=== PATIENT | female | born 1990 | race Caucasian/White ===

== ENCOUNTER 2019-10-18 09:58 | Emergency (ER) | payer OTHER, SELFPAY ==
--- NOTE | 2019-10-18 10:07 | DI.US.S_ITS ---
PROCEDURE: US OB <= 14 WEEKS FETUS INDICATIONS: 12 WEEK WITH VAGINAL BLEEDING.RECENT CERVICAL BIOP OUTSIDE/PRIOR DATING DATA: Last menstrual period (LMP): Unknown. LMP-based estimated date of delivery (ADAM): 05/03/20. First dating scan (date and location): 10/18/19. Estimated date of delivery (ADAM) from first dating scan: 04/29/20. TECHNIQUE: Real-time scanning was performed of the fetus and maternal pelvic organs, with image documentation. COMPARISON: None. FINDINGS: Embryo: A single live intrauterine is identified with heart motion detected at 162 beats per minute. A developing embryo is well visualized with a crown-rump length of 5.8 cm, which correlates with an estimated gestational age of 12 weeks 2 days. (Please note that the BPD and HC measurements were also obtained, which are not felt to be accurate at this age and is subsequently were not included in the dating calculations for this study.) No anatomic abnormalities are evident. There is a small subchorionic hemorrhage identified along the lower aspect of the gestational sac just below the level of the placenta close to the cervical os that measures 1.8 x 0.8 x 1.7 cm. Other: Ovaries were not definitely seen. No adnexal abnormalities are appreciated.. Limited images through the kidneys demonstrate no hydronephrosis. IMPRESSION: 1. Single live intrauterine at 12 weeks 2 days (sonographic ADAM 04/29/20) is concordant with the dates based on the patient's LMP. 2. Small subchorionic hemorrhage is positioned near the endocervical os. No previa is appreciated. Followup imaging in 1 to 2 weeks may be helpful to reevaluate this. Dictated by: Vikram Hogan M.D. on 10/18/2019 at 10:49 Approved by: Vikram Hogan M.D. on 10/18/2019 at 10:53
[2019-10-18 10:10] VITALS: BP 140/93; PULSE 100; RESP 13; TEMP 36.9; O2SAT 99
[2019-10-18 10:27] LABS: Add Manual Diff / Slide Review NO; Basophils Absolute Auto 0 /uL (0-100); Basophils Percent Auto 0.5 % (0-2); Eosinophils Absolute Auto 100 /uL (0-450); Eosinophils Percent Auto 1.3 % (2-4); Hematocrit 36.8 % (36-46); Hemoglobin 12.6 g/dL (12.0-16.0); Lymphocytes Absolute Auto 2100 /uL (1100-4500); Lymphocytes Percent Auto 24.8 % (25-40); Mean Corpuscular HGB Conc 34.2 % (30-36); Mean Corpuscular Hemoglobin 29.6 PG (26-34); Mean Corpuscular Volume 86.7 fL (80-100); Monocytes Absolute Auto 500 /uL (0-900); Monocytes Percent Auto 5.6 % (3-14); Neutrophils Absolute Auto 5700 /uL (1500-7000); Neutrophils Percent Auto 67.8 % (50-75); Platelet Count 168 X10^3/uL (150-400); Red Blood Cell Count 4.25 X10^6/uL (4.0-5.2); Red Cell Distribution Width 13.4 % (11.6-14.8); White Blood Cell Count 8.5 X10^3/uL (4.5-11.0)
[2019-10-18 10:37] LABS: Alanine Aminotransferase 13 IU/L (<35); Albumin 4.2 g/dL (3.5-5.0); Albumin Globulin Ratio 1.2 (1.0-2.8); Alkaline Phosphatase 58 U/L (38-126); Aspartate Aminotransferase 30 IU/L (14-36); BUN Creatinine Ratio 18.3 (6-22); Bilirubin Total 0.3 mg/dL (0.2-1.3); Blood Urea Nitrogen 11 mg/dL (7-17); Calcium 9.1 mg/dL (8.4-10.2); Carbon Dioxide 19 mmol/L (22-32); Chloride 107 mmol/L (98-107); Estimated Glomerular Filt Rate > 60.0 mL/min (>60); Globulin 3.4 g/dL (1.7-4.1); Glucose 86 mg/dL (70-100); HEMOLYSIS < 15 (0-50); Potassium 3.6 mmol/L (3.4-5.1); Sodium 138 mmol/L (137-145); Total Protein 7.6 g/dL (6.3-8.2)
--- NOTE | 2019-10-18 11:14 | ED.PREGNANCY ---
HPI - General Chief complaint: Vaginal Bleeding Stated complaint: 12 weeks preg and having vaginal bleeding Time Seen by Provider: 10/18/19 11:14 Source: patient Mode of arrival: Ambulatory Limitations: no limitations History of Present Illness HPI Narrative: 29-year-old female comes to the emergency department with complaint of vaginal bleeding. Patient states she is 12 weeks . She has been following with OBGYN. She had an ultrasound about 9 weeks. Patient had a Pap which was abnormal and they want to get a cervical biopsy which she had done on Sunday, 4 days ago. She had some mild spotting on Sunday and no more until today. Today she has had a little bit of pinkish reddish blood on her underwear and then noted some small clots. Patient denies any abdominal pain or cramping. She has had 4 total pregnancies with the 3 prior ending in miscarriage. Patient denies any fevers, no chest pain or shortness of breath other than when she exerts herself. No nausea or vomiting currently. No issues with bowel movements or urination. No dysuria urgency or frequency. Review of Systems Review of Systems ROS Unobtainable: All systems reviewed & are unremarkable except as noted in HPI and below PMFSH - Past Medical History Medical history: Reports no medical history Exam Narrative Exam Narrative: GENERAL: Alert and oriented x three, well-nourished female in mild distress. HEENT: Head normocephalic, atraumatic, EOMI, pupils reactive, face symmetric, moist mucous membranes NECK: Supple, full range of motion CARDIOVASCULAR: Regular rate and rhythm without murmurs, rubs or gallops. RESPIRATORY: Breath sounds equal bilaterally, no wheezes rales or rhonchi. ABDOMEN: Soft, nontender. Normoactive bowel sounds all 4 quadrants. No guarding or rebound, rigidity, no mass : No CVA tenderness EXTREMITIES: Normal range of motion, no clubbing or edema. Neurovascularly intact NEUROLOGICAL: Cranial nerves II through XII grossly intact. Moving all extremities SKIN: Warm, dry, no petechiae, no rashes or lesions. Initial Vital Signs Initial Vital Signs: Vital Signs Temperature 98.5 F 10/18/19 10:10 Pulse Rate 100 H 10/18/19 10:10 Respiratory Rate 13 10/18/19 10:10 Blood Pressure 140/93 H 10/18/19 10:10 Pulse Oximetry 99 10/18/19 10:10 Course Orders Ordered: ED Orders 10/18/19 10:07 US OB <= 14 weeks fetus Stat 10/18/19 10:17 ABO RH Type Stat Complete Blood Count AUTO DIFF Stat Comprehensive Metabolic Panel Stat HCG Quantitative /Beta subunit Stat 10/18/19 11:45 Urine Culture Stat Urine Microscopic Stat Vital Signs Vital signs: Vital Signs - 8 hr 10/18/19 10:10 10/18/19 11:56 10/18/19 12:45 Temperature 98.5 F 97.2 F L Pulse Rate 100 H 64 Respiratory Rate 13 16 Blood Pressure 140/93 H Blood Pressure [Right Arm] 111/70 Pulse Oximetry 99 100 MDM - OB/Uterine Contractions Lab Data Attestation: I reviewed the patient's lab results. Result diagrams: 10/18/19 10:17 10/18/19 10:17 Labs: Lab Results 10/18/19 10/18/19 10/18/19 Range/Units 10:17 10:17 10:17 WBC 8.5 (4.5-11.0) X10^3/uL RBC 4.25 (4.0-5.2) X10^6/uL Hgb 12.6 (12.0-16.0) g/dL Hct 36.8 (36-46) % MCV 86.7 (80-100) fL MCH 29.6 (26-34) PG MCHC 34.2 (30-36) % RDW 13.4 (11.6-14.8) % Plt Count 168 (150-400) X10^3/uL Neut % (Auto) 67.8 (50-75) % Lymph % (Auto) 24.8 L (25-40) % [place] % (Auto) 5.6 (3-14) % Eos % (Auto) 1.3 L (2-4) % Baso % (Auto) 0.5 (0-2) % Neut # (Auto) 5700 (5257-0431) /uL Lymph # (Auto) 2100 (8914-2810) /uL [place] # (Auto) 500 (0-900) /uL Eos # (Auto) 100 (0-450) /uL Baso # (Auto) 0 (0-100) /uL Sodium 138 (137-145) mmol/L Potassium 3.6 (3.4-5.1) mmol/L Chloride 107 (98-107) mmol/L Carbon Dioxide 19 L (22-32) mmol/L BUN 11 (7-17) mg/dL Creatinine 0.60 (0.52-1.04) mg/dL Estimated GFR > 60.0 (>60) mL/min BUN/Creatinine Ratio 18.3 (6-22) Glucose 86 (70-100) mg/dL Calcium 9.1 (8.4-10.2) mg/dL Total Bilirubin 0.3 (0.2-1.3) mg/dL AST 30 (14-36) IU/L ALT 13 (<35) IU/L Alkaline Phosphatase 58 (38-126) U/L Total Protein 7.6 (6.3-8.2) g/dL Albumin 4.2 (3.5-5.0) g/dL Globulin 3.4 (1.7-4.1) g/dL Albumin/Globulin Ratio 1.2 (1.0-2.8) HCG, Quant 52165 mIU/mL Urine RBC (0-5/HPF) Urine WBC (0-5/HPF) Ur Squamous Epith Cells (0-5/HPF) Urine Bacteria (None) Ur Culture Indicated? Blood Type A Positive 10/18/19 Range/Units 11:45 WBC (4.5-11.0) X10^3/uL RBC (4.0-5.2) X10^6/uL Hgb (12.0-16.0) g/dL Hct (36-46) % MCV (80-100) fL MCH (26-34) PG MCHC (30-36) % RDW (11.6-14.8) % Plt Count (150-400) X10^3/uL Neut % (Auto) (50-75) % Lymph % (Auto) (25-40) % [place] % (Auto) (3-14) % Eos % (Auto) (2-4) % Baso % (Auto) (0-2) % Neut # (Auto) (9709-0552) /uL Lymph # (Auto) (7126-9819) /uL [place] # (Auto) (0-900) /uL Eos # (Auto) (0-450) /uL Baso # (Auto) (0-100) /uL Sodium (137-145) mmol/L Potassium (3.4-5.1) mmol/L Chloride (98-107) mmol/L Carbon Dioxide (22-32) mmol/L BUN (7-17) mg/dL Creatinine (0.52-1.04) mg/dL Estimated GFR (>60) mL/min BUN/Creatinine Ratio (6-22) Glucose (70-100) mg/dL Calcium (8.4-10.2) mg/dL Total Bilirubin (0.2-1.3) mg/dL AST (14-36) IU/L ALT (<35) IU/L Alkaline Phosphatase (38-126) U/L Total Protein (6.3-8.2) g/dL Albumin (3.5-5.0) g/dL Globulin (1.7-4.1) g/dL Albumin/Globulin Ratio (1.0-2.8) HCG, Quant mIU/mL Urine RBC None seen (0-5/HPF) Urine WBC 5-10/hpf H (0-5/HPF) Ur Squamous Epith Cells 1-5 /hpf (0-5/HPF) Urine Bacteria Occasional (0-1) (None) Ur Culture Indicated? Specimen cultured Blood Type Urine Dip Bedside Urine Glucose Negative Bedside Urine Bilirubin - Negative Bedside Urine Ketone ++ 40 Urine Specific [place] 1.010 Bedside Urine Occult Blood - Negative Bedside Urine pH 6.0 Bedside Urine Protein - Negative Bedside Urine Urobilinogen - Negative Bedside Urine Nitrite - Negative Bedside Urine Leukocytes - Negative Esterase Imaging Data ultrasound: Radiologist's Impression: [place] [address] Ultrasound Report Signed Patient: AburtoImelda MMR#: [id number] : 1990Acct:[id number] Age/Sex: 29 FDate of Service: 10/18/19 Loc: ED Accession Number: [id number] Procedure: US OB <= 14 weeks fetus Ordering Provider: Imelda Barrera D.O. PROCEDURE: US OB <= 14 WEEKS FETUS INDICATIONS: 12 WEEK WITH VAGINAL BLEEDING.RECENT CERVICAL BIOP OUTSIDE/PRIOR DATING DATA: Last menstrual period (LMP): Unknown. LMP-based estimated date of delivery (ADAM): 05/03/20. First dating scan (date and location): 10/18/19. Estimated date of delivery (ADAM) from first dating scan: 04/29/20. TECHNIQUE: Real-time scanning was performed of the fetus and maternal pelvic organs, with image documentation. COMPARISON: None. FINDINGS: Embryo: A single live intrauterine is identified with heart motion detected at 162 beats per minute. A developing embryo is well visualized with a crown-rump length of 5.8 cm, which correlates with an estimated gestational age of 12 weeks 2 days. (Please note that the BPD and HC measurements were also obtained, which are not felt to be accurate at this age and is subsequently were not included in the dating calculations for this study.) No anatomic abnormalities are evident. There is a small subchorionic hemorrhage identified along the lower aspect of the gestational sac just below the level of the placenta close to the cervical os that measures 1.8 x 0.8 x 1.7 cm. Other: Ovaries were not definitely seen. No adnexal abnormalities are appreciated.. Limited images through the kidneys demonstrate no hydronephrosis. IMPRESSION: 1. Single live intrauterine at 12 weeks 2 days (sonographic ADAM 04/29/20) is concordant with the dates based on the patient's LMP. 2. Small subchorionic hemorrhage is positioned near the endocervical os. No previa is appreciated. Followup imaging in 1 to 2 weeks may be helpful to reevaluate this. Dictated by: Vikram Hogan M.D. on 10/18/2019 at 10:49 Approved by: Vikram Hogan M.D. on 10/18/2019 at 10:53 MDM Narrative Medical decision making narrative: Patient is RH positive and does no require rhogam. CBC is normal range, chemistry shows a CO of 19 [place] [address]. Consistent with current dates. US shows a small subchorionic hemorrhage. Repeat imaging is recommended in 1-2 weeks. Plan for watchful waiting. Discussed with patient plan for pelvic rest and short-term follow-up with her care providers. Patient is supposed to follow up with MFM on Sunday at [facility]. Encouraged to go ahead and call them this evening to chat for any other recommendations. Pelvic rest. 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 We discussed return precautions signs symptoms to watch for. Patient feels comfortable with the plan at this time. Discharge Plan Departure Patient Disposition: Home Clinical Impression: Subchorionic hemorrhage Qualifiers: Fetus number: single or unspecified fetus Discharge Date/Time: 10/18/19 12:45 Instructions: DI for Vaginal Bleeding During Activity Restrictions/Additional Instructions: Follow up with your providers this week. Call Sunday morning for an appointment. Your ultrasound a small subchorionic hemorrhage and is recommended they have repeat imaging in the next 1-2 weeks for re-evaluation. I recommend pelvic rest with no lifting, no sexual activity until cleared by your physician. Continue home medication/ vitamins. Return to the ER for fevers, abdominal pain, rapidly increasing bleeding, large clots, lightheadedness or passing out, persistent vomiting, black or bloody stools or other new or concerning symptoms. Referrals: Miscellaneous,Doctor, [Primary Care Provider] - Stand Alone Forms: Work Release Note
[2019-10-18 11:18] LABS: HCG Quantitative /Beta subunit 77414 mIU/mL
[2019-10-18 11:56] VITALS: BP 111/70; PULSE 64; RESP 16; O2SAT 100
[2019-10-18 12:16] LABS: RBC Urine None Seen (0-5/HPF)
[2019-10-18 12:32] LABS: Bacteria Urine Occasional (0-1); Culture Indicated Urine Specimen Cultured; Squamous Epithelial Cell Urine 1-5 /HPF (0-5/HPF); WBC Urine 5-10/HPF (0-5/HPF)
[2019-10-18 12:45] VITALS: TEMP 36.2
== END 2019-10-18 12:45 | disposition home or self-care (01) ==
PROVIDERS: Emergency Provider Emergency Medicine
DX: O41.8X11 Other specified disorders of amniotic fluid and membranes, first trimester, fetus 1 (principal); Z3A.12 12 weeks gestation of pregnancy
CPT/HCPCS: 36415; 76801; 80053; 81003; 81015; 84702; 85025; 86900; 86901; 87086; 99284

== ENCOUNTER → 2022-05-17 09:46 | Outpatient (CLI) | payer OTHER, SELFPAY ==
[2022-05-17 11:09] LABS: HCG Quantitative /Beta subunit 190.4 mIU/mL
== END ==
PROVIDERS: PCP Family Medicine; Referring Provider Obstetrics & Gynecology; Visit Provider Obstetrics & Gynecology
DX: N96 Recurrent pregnancy loss (principal); Z34.91 Encounter for supervision of normal pregnancy, unspecified, first trimester
CPT/HCPCS: 36415; 84144; 84702

== ENCOUNTER → 2022-05-19 10:33 | Outpatient (CLI) | payer OTHER, SELFPAY ==
[2022-05-19 12:46] LABS: HCG Quantitative /Beta subunit 395.3 mIU/mL
== END ==
PROVIDERS: PCP Family Medicine; Referring Provider Obstetrics & Gynecology; Visit Provider Obstetrics & Gynecology
DX: N96 Recurrent pregnancy loss (principal); Z34.91 Encounter for supervision of normal pregnancy, unspecified, first trimester
CPT/HCPCS: 36415; 84702

== ENCOUNTER → 2022-06-20 12:21 | Outpatient (CLI) | payer OTHER, SELFPAY ==
[2022-06-20 12:44] LABS: Add Manual Diff / Slide Review NO; Basophils Absolute Auto 100 /uL (0-100); Basophils Percent Auto 0.6 % (0-2); Eosinophils Absolute Auto 200 /uL (0-450); Eosinophils Percent Auto 2.2 % (2-4); Hemoglobin 12.6 g/dL (12.0-16.0); Lymphocytes Absolute Auto 1700 /uL (1100-4500); Mean Corpuscular HGB Conc 33.2 % (30-36); Mean Corpuscular Hemoglobin 29.2 PG (26-34); Mean Corpuscular Volume 87.9 fL (80-100); Monocytes Absolute Auto 500 /uL (0-900); Monocytes Percent Auto 5.8 % (3-14); Neutrophils Absolute Auto 6800 /uL (1500-7000); Neutrophils Percent Auto 73.4 % (50-75); Platelet Count 207 X10^3/uL (150-400); Red Blood Cell Count 4.32 X10^6/uL (4.0-5.2); Red Cell Distribution Width 13.2 % (11.6-14.8); White Blood Cell Count 9.3 X10^3/uL (4.5-11.0)
[2022-06-20 14:42] LABS: Hepatitis B Surface Antigen NEGATIVE s/c (NEGATIVE); Rubella Antibody IgG 48.9 IU/mL (>15)
[2022-06-20 14:57] LABS: HIV 1 & 2 Ab/Ag 4th Gen Combo NEGATIVE (NEGATIVE); Hep C Virus Ab w/Reflex Quant NEGATIVE s/c (NEGATIVE)
[2022-06-21 08:28] LABS: Varicella IgG Antibody 1553 index (Immune >165)
[2022-06-21 11:49] LABS: RPR Screen Non Reactive (Non Reactive)
== END ==
PROVIDERS: PCP Family Medicine; Referring Provider Obstetrics & Gynecology; Visit Provider Obstetrics & Gynecology
DX: Z34.81 Encounter for supervision of other normal pregnancy, first trimester (principal)
CPT/HCPCS: 36415; 80055; 86787; 86803; 86850; 86900; 86901; 87389

== ENCOUNTER → 2022-06-30 16:28 | Outpatient (CLI) | payer OTHER, SELFPAY | PROVIDERS: PCP Family Medicine; Referring Provider Obstetrics & Gynecology; Visit Provider Obstetrics & Gynecology | DX: Z34.81 Encounter for supervision of other normal pregnancy, first trimester (principal) | CPT/HCPCS: 36415 ==

== ENCOUNTER → 2022-07-19 13:57 | Outpatient (CLI) | payer OTHER, SELFPAY ==
[2022-07-19 19:04] LABS: Appearance Urine UA CLEAR; Bilirubin Urine UA NEGATIVE (NEGATIVE); Color Urine UA YELLOW; Glucose Urine UA NEGATIVE (Negative); Ketones Urine UA NEGATIVE (NEGATIVE); Leukocyte Esterase Urine UA NEGATIVE (NEGATIVE); Nitrite Urine UA NEGATIVE (Negative); Occult Blood Urine UA NEGATIVE (Negative); Protein Urine UA NEGATIVE (Negative); Specific Gravity Urine UA 1.015 (1.000-1.035); Urobilinogen Urine UA 0.2 E.U./dL (0.2)
[2022-07-19 20:30] LABS: Urine N gonorrhoeae NOT DETECTED
[2022-07-19 20:31] LABS: Urine Chlamydia NOT DETECTED
== END ==
PROVIDERS: PCP Family Medicine; Visit Provider Obstetrics & Gynecology
DX: Z34.81 Encounter for supervision of other normal pregnancy, first trimester (principal); Z3A.13 13 weeks gestation of pregnancy
CPT/HCPCS: 81003; 87086; 87491; 87591

== ENCOUNTER → 2022-08-16 15:46 | Outpatient (CLI) | payer OTHER, SELFPAY ==
[2022-08-16 16:16] LABS: Alanine Aminotransferase 16 IU/L (<35); Aspartate Aminotransferase 22 IU/L (14-36); Blood Urea Nitrogen 13 mg/dL (7-17); Estimated Glomerular Filt Rate > 60 mL/min (>60)
[2022-08-19 20:26] LABS: AFP Value 40.5 ng/mL (.); Gest Age on Col Date 17.4 weeks (.); Insulin Dep Diabetes No (.); OSBR Risk 1IN 7366 (.); Results Report (.); Test Results *Screen Negative* (.)
== END ==
PROVIDERS: PCP Family Medicine; Referring Provider Specialist; Visit Provider Specialist
DX: O13.5 Gestational [pregnancy-induced] hypertension without significant proteinuria, complicating the puerperium (principal); Z3A.17 17 weeks gestation of pregnancy
CPT/HCPCS: 36415; 82105; 82565; 84450; 84460; 84520

== ENCOUNTER → 2022-09-04 14:08 | Outpatient (CLI) | payer OTHER, SELFPAY ==
--- NOTE | 2022-09-04 14:10 | DI.US.S_ITS ---
PROCEDURE: US OB >= 14 WEEKS FETUS INDICATIONS: Anatomy scan OUTSIDE/PRIOR DATING DATA: Last menstrual period (LMP): April 16, 2022. LMP-based estimated date of delivery (ADAM): January 21, 2023. First dating scan (date and location): June 20, 2022. Estimated date of delivery (ADAM) from first dating scan: January 23, 2023. The calculations are made using the last menstrual period ADAM of January 21, 2023. TECHNIQUE: Real-time scanning was performed of the fetus, with image documentation and biometric measurements. Endovaginal scanning: Not performed COMPARISON: None. FINDINGS: General: A single living intrauterine gestation is present. Presentation: Transverse with head to maternal left. Placenta: Placental position is anterior , without previa. There is a possible low lying placenta. Amniotic fluid index: 15.9 cm, normal range is 5-24 cm. Single deepest vertical pocket is 4.8 cm. heart rate: 155 beats per minute. Maternal cervical canal: 6.6 cm long. Normal lower limit is 2.5 cm. biometrics: Biparietal diameter: 4.4 cm, 19 weeks and 2 days Head circumference: 16.5 cm, 19 weeks and 2 days Abdominal circumference: 14.2 cm, 19 weeks and 4 days Femur length: 3.1 cm, 19 weeks and 5 days Clinically estimated gestational age: 20 weeks and 1 day Composite gestational age from present scan: 19 weeks and 3 days Estimated weight and percentile: 300 g which correlates with the 18th percentile based off gestational age Anatomic survey: Neuro: Ventricles are non-dilated at less than 10 mm. Cisterna magna is normal at 3-11 mm. Cerebellum is normal in size and morphology. Nuchal skin fold: Normal at less than 6 mm between 14-21 weeks gestational age. Face: Nose and lips, facial profile are normal. Spine: No evidence for spina bifida. Heart: 4-chambered heart is present, with normal ventricular outflow tracts. Diaphragm: Diaphragm is intact. Stomach: Left-sided stomach is present. Kidneys: No hydronephrosis. Normal is less than 5 mm in 2nd trimester, less than 7 mm in 3rd trimester. Cord: 3-vessel cord has orthotopic insertion. Bladder: Normal in size. Extremities: All 4 extremities identified. IMPRESSION: Single living intrauterine gestation with estimated sonographic gestational age of approximately 19 weeks and 3 days versus approximately 20 weeks and 1 day based off last menstrual period. Measurements are concordant. Estimated dated delivery based off last menstrual period is approximately January 21, 2023. Unremarkable second-trimester anatomy screening survey. Possible low lying placenta. Follow-up recommended. We strive to produce accurate, complete, and clear reports of imaging services. To assist us in improving patient care, this report was composed using standard report templates and voice recognition software. Therefore, it may contain abnormal punctuation, insertions and/or omissions. Occasional wrong-word or sound-alike substitutions may occur. Though we review the report and make efforts to correct it, we do recommend that the report be read carefully in proper context to recognize any text inaccuracies. Dictated by: Jimmy Villela M.D. on 09/04/2022 at 17:14 Approved by: Jimmy Villela M.D. on 09/04/2022 at 17:18
== END ==
PROVIDERS: PCP Family Medicine; Referring Provider Obstetrics & Gynecology; Visit Provider Obstetrics & Gynecology
DX: Z34.92 Encounter for supervision of normal pregnancy, unspecified, second trimester (principal); Z3A.20 20 weeks gestation of pregnancy
CPT/HCPCS: 76811

== ENCOUNTER → 2022-10-19 12:35 | Outpatient (CLI) | payer OTHER, SELFPAY ==
[2022-10-19 15:10] LABS: Hematocrit 34.8 % (36-46); Hemoglobin 11.8 g/dL (12.0-16.0)
[2022-10-19 15:21] LABS: GTT (PREG) 1 Hour PP 50gm Dose 84 mg/dL (76-139)
== END ==
PROVIDERS: PCP Family Medicine; Referring Provider Obstetrics & Gynecology; Visit Provider Obstetrics & Gynecology
DX: Z34.82 Encounter for supervision of other normal pregnancy, second trimester (principal); Z3A.26 26 weeks gestation of pregnancy
CPT/HCPCS: 36415; 82950; 85014; 85018

== ENCOUNTER → 2022-11-10 16:22 | Outpatient (CLI) | payer OTHER, SELFPAY ==
[2022-11-10 18:39] LABS: Creatinine Urine Random 117.4 mg/dL
[2022-11-10 19:17] LABS: Protein (Total) Urine Random < 5 mg/dL (0-12); Protein Creatinine Ratio Urine 0.04 GRAM/24H
== END ==
PROVIDERS: PCP Family Medicine; Referring Provider Obstetrics & Gynecology; Visit Provider Obstetrics & Gynecology
DX: O36.5990 Maternal care for other known or suspected poor fetal growth, unspecified trimester, not applicable or unspecified (principal)
CPT/HCPCS: 36415; 82570; 84156; 86644; 86645

== ENCOUNTER 2022-11-27 15:27 | Outpatient (CLI) | payer OTHER, SELFPAY ==
--- NOTE | 2022-11-27 16:07 | P.TNLD_ITS ---
Visit Information Visit Information Date of evaluation: 11/27/22 Primary OB Provider: Vanessa Mancini On-call OB Provider: Ally Mcghee Comments/Additional reasons for admission: 32yo at 32w1d here for NST for SGA. Pt is feeling her baby move regularly. [facility] Medical History (Updated 11/09/22 @ 18:47 by Vanessa Mancini MD) Abnormal Pap smear of cervix (~2019) HPV (human papilloma virus) infection (~2019) Intrauterine growth restriction (IUGR) affecting care of mother induced hypertension, Recurrent loss Surgical History (Updated 06/25/22 @ 19:56 by Vanessa Mancini MD) Anesthesia History of dilatation and curettage (~03/2019) S/P LEEP (~05/2020) [place] teeth extracted Family History (Updated 05/22/22 @ 12:47 by Florence Aiken RN) Father Diabetes mellitus Family/Other Cirrhosis with alcoholism Grandmother End stage liver disease Mother Kidney stones Uterine fibroid Grandmother Kidney stones Social History marital status: number of children: 1 household members: spouse and children lives independently: Yes caregiver/support person: Yes housing: house pets and animals: Yes (1 dog) education level: college (Associate's degree) occupational status: unemployed current occupational exposures/hazards: No lali/protestant: Zoroastrianism special lali needs: No travel history: recent (domestic only) seatbelt use: always water heater temp set < 120 deg: Yes working smoke detector in home: Yes fire extinguisher in home: Yes carbon monox detector in home: Yes firearms in home: Yes firearms unloaded and locked: Yes do you feel safe at home: Yes Smoking Status: Never smoker second hand exposure: No alcohol intake: former (1-2/week when not ) substance use type: does not use during the past year weight has: remained stable well-balanced diet: about half the time daily servings fruits/ve-4 caffeine: Yes (aware of 200mg limit) Type(s) of exercise: walking Evaluation Evaluation Baseline heart rate: 150 Variability: Moderate (11-25) monitor accelerations: Present Monitor Decelerations: Absent Category of Tracing: Reactive Diagnosis, Plan/Disposition Plan/Disposition Plan: 32yo at 32w1d here for NST for SGA. NST reactive. Stable for d/c home. Continue testing and regular u/s with MFM. OB Disposition: home
== END 2022-11-27 16:10 | disposition home or self-care (01) ==
LOC: OB 12-08 09:48
PROVIDERS: PCP Family Medicine; Referring Provider Obstetrics & Gynecology; Visit Provider Obstetrics & Gynecology
DX: O36.5930 Maternal care for other known or suspected poor fetal growth, third trimester, not applicable or unspecified (principal); Z3A.32 32 weeks gestation of pregnancy
CPT/HCPCS: 59025; G0378; G0379

== ENCOUNTER 2022-12-06 15:10 | Outpatient (CLI) | payer OTHER, SELFPAY ==
[2022-12-06 18:10] LABS: Protein (Total) Urine Random < 5 mg/dL (0-12)
--- NOTE | 2022-12-10 23:18 | PM.OBTRLD ---
Visit Information Visit Information Date of evaluation: 12/06/22 Primary OB Provider: Vanessa Mancini On-call OB Provider: Vanessa Mancini Reason for Evaluation: Yes non-stress test non-stress test reason: other (FGR) [facility] Medical History (Updated 12/07/22 @ 15:37 by Vanessa Mancini MD) Abnormal Pap smear of cervix (~2019) HPV (human papilloma virus) infection (~2019) Intrauterine growth restriction (IUGR) affecting care of mother induced hypertension, Recurrent loss Surgical History (Updated 06/25/22 @ 19:56 by Vanessa Mancini MD) Anesthesia History of dilatation and curettage (~03/2019) S/P LEEP (~05/2020) [place] teeth extracted Family History (Updated 05/22/22 @ 12:47 by Florence Aiken RN) Father Diabetes mellitus Family/Other Cirrhosis with alcoholism Grandmother End stage liver disease Mother Kidney stones Uterine fibroid Grandmother Kidney stones Social History marital status: number of children: 1 household members: spouse and children lives independently: Yes caregiver/support person: Yes housing: house pets and animals: Yes (1 dog) education level: college (Associate's degree) occupational status: unemployed current occupational exposures/hazards: No lali/voodoo: Roman Catholic special lali needs: No travel history: recent (domestic only) seatbelt use: always water heater temp set < 120 deg: Yes working smoke detector in home: Yes fire extinguisher in home: Yes carbon monox detector in home: Yes firearms in home: Yes firearms unloaded and locked: Yes do you feel safe at home: Yes Smoking Status: Never smoker second hand exposure: No alcohol intake: former (1-2/week when not ) substance use type: does not use during the past year weight has: remained stable well-balanced diet: about half the time daily servings fruits/ve-4 caffeine: Yes (aware of 200mg limit) Type(s) of exercise: walking Evaluation Evaluation Baseline heart rate: 140 Variability: Moderate (11-25) monitor accelerations: Present Monitor Decelerations: Absent Category of Tracing: Reactive Diagnosis, Plan/Disposition Plan/Disposition Plan: Reactive NST Discussed [facility]'s F/U 4 days for a repeat NST OB Disposition: home
== END 2022-12-06 15:50 | disposition home or self-care (01) ==
LOC: LABOR 15:14 → OB 12-08 16:14
PROVIDERS: PCP Family Medicine; Referring Provider Obstetrics & Gynecology; Visit Provider Obstetrics & Gynecology
DX: O36.5930 Maternal care for other known or suspected poor fetal growth, third trimester, not applicable or unspecified (principal); Z3A.33 33 weeks gestation of pregnancy
CPT/HCPCS: 59025; 84156; G0378; G0379

== ENCOUNTER 2022-12-09 14:14 | Outpatient (CLI) | payer OTHER, SELFPAY | END 2022-12-09 14:50 | disposition home or self-care (01) | LOC: OB 12-14 14:53 | PROVIDERS: PCP Family Medicine; Referring Provider Obstetrics & Gynecology; Visit Provider Obstetrics & Gynecology | DX: O36.5930 Maternal care for other known or suspected poor fetal growth, third trimester, not applicable or unspecified (principal); Z3A.33 33 weeks gestation of pregnancy | CPT/HCPCS: 59025; G0378; G0379 ==

== ENCOUNTER 2022-12-14 14:33 | Outpatient (CLI) | payer OTHER, SELFPAY | END 2022-12-14 15:27 | disposition home or self-care (01) | LOC: LABOR 14:57 → OB 12-21 09:01 | PROVIDERS: PCP Family Medicine; Referring Provider Obstetrics & Gynecology; Visit Provider Obstetrics & Gynecology | DX: O36.5930 Maternal care for other known or suspected poor fetal growth, third trimester, not applicable or unspecified (principal); Z3A.34 34 weeks gestation of pregnancy | CPT/HCPCS: 59025; G0378; G0379 ==

== ENCOUNTER 2022-12-17 09:16 | Outpatient (CLI) | payer OTHER, SELFPAY ==
--- NOTE | 2022-12-17 11:56 | P.TNLD_ITS ---
Visit Information Visit Information Date of evaluation: 12/17/22 Primary OB Provider: Vanessa Mancini On-call OB Provider: Courtney Rivera Reason for Evaluation: Yes non-stress test non-stress test reason: other (IUGR) Vital Signs Vital Signs: BP 123/74, P 91, T 36 [facility] Medical History (Updated 12/17/22 @ 12:02 by Courtney Rivera MD) Abnormal Pap smear of cervix (~2019) HPV (human papilloma virus) infection (~2019) Intrauterine growth restriction (IUGR) affecting care of mother induced hypertension, Recurrent loss Surgical History (Updated 06/25/22 @ 19:56 by Vanessa Mancini MD) Anesthesia History of dilatation and curettage (~03/2019) S/P LEEP (~05/2020) [place] teeth extracted Family History (Updated 05/22/22 @ 12:47 by Florence Aiken RN) Father Diabetes mellitus Family/Other Cirrhosis with alcoholism Grandmother End stage liver disease Mother Kidney stones Uterine fibroid Grandmother Kidney stones Social History marital status: number of children: 1 household members: spouse and children lives independently: Yes caregiver/support person: Yes housing: house pets and animals: Yes (1 dog) education level: college (Associate's degree) occupational status: unemployed current occupational exposures/hazards: No lali/taoist: Nondenominational special lali needs: No travel history: recent (domestic only) seatbelt use: always water heater temp set < 120 deg: Yes working smoke detector in home: Yes fire extinguisher in home: Yes carbon monox detector in home: Yes firearms in home: Yes firearms unloaded and locked: Yes do you feel safe at home: Yes Smoking Status: Never smoker second hand exposure: No alcohol intake: former (1-2/week when not ) substance use type: does not use during the past year weight has: remained stable well-balanced diet: about half the time daily servings fruits/ve-4 caffeine: Yes (aware of 200mg limit) Type(s) of exercise: walking Evaluation Evaluation Baseline heart rate: 130 Variability: Moderate (11-25) monitor accelerations: Present Monitor Decelerations: Absent Contraction Frequency (minutes): 0 Category of Tracing: Reactive Status: Category l Diagnosis, Plan/Disposition Final Diagnosis (1) Intrauterine growth restriction (IUGR) affecting care of mother: Status: Acute (2) 34 weeks gestation of : Status: Acute Plan/Disposition Plan: Reactive NST. Continue twice weekly NST and weekly OB visits OB Disposition: home
== END 2022-12-17 10:08 | disposition home or self-care (01) ==
LOC: OB 12-21 08:55
PROVIDERS: PCP Family Medicine; Referring Provider Specialist; Visit Provider Specialist
DX: O36.5930 Maternal care for other known or suspected poor fetal growth, third trimester, not applicable or unspecified (principal); Z3A.34 34 weeks gestation of pregnancy
CPT/HCPCS: 59025; G0378; G0379

== ENCOUNTER 2022-12-20 14:22 | Outpatient (CLI) | payer OTHER, SELFPAY ==
--- NOTE | 2022-12-20 14:49 | P.TNLD_ITS ---
Visit Information Visit Information Date of evaluation: 12/20/22 Primary OB Provider: Vanessa Mancini On-call OB Provider: Courtney Rivera Reason for Evaluation: Yes non-stress test non-stress test reason: other (IUGR) Vital Signs Vital Signs: Blood pressure 127/76, pulse of 88, temperature 36.3? FORMERLY [facility], [facility] Medical History (Updated 12/20/22 @ 14:50 by Courtney Rivera MD) Abnormal Pap smear of cervix (~2019) HPV (human papilloma virus) infection (~2019) Intrauterine growth restriction (IUGR) affecting care of mother induced hypertension, Recurrent loss Surgical History (Updated 06/25/22 @ 19:56 by Vanessa Mancini MD) Anesthesia History of dilatation and curettage (~03/2019) S/P LEEP (~05/2020) [place] teeth extracted Family History (Updated 05/22/22 @ 12:47 by Florence Aiken RN) Father Diabetes mellitus Family/Other Cirrhosis with alcoholism Grandmother End stage liver disease Mother Kidney stones Uterine fibroid Grandmother Kidney stones Social History marital status: number of children: 1 household members: spouse and children lives independently: Yes caregiver/support person: Yes housing: house pets and animals: Yes (1 dog) education level: college (Associate's degree) occupational status: unemployed current occupational exposures/hazards: No lali/uatsdin: Restoration special lali needs: No travel history: recent (domestic only) seatbelt use: always water heater temp set < 120 deg: Yes working smoke detector in home: Yes fire extinguisher in home: Yes carbon monox detector in home: Yes firearms in home: Yes firearms unloaded and locked: Yes do you feel safe at home: Yes Smoking Status: Never smoker second hand exposure: No alcohol intake: former (1-2/week when not ) substance use type: does not use during the past year weight has: remained stable well-balanced diet: about half the time daily servings fruits/ve-4 caffeine: Yes (aware of 200mg limit) Type(s) of exercise: walking Evaluation Evaluation Baseline heart rate: 130 Variability: Moderate (11-25) monitor accelerations: Present Monitor Decelerations: Absent Contraction Frequency (minutes): 0 Category of Tracing: Reactive Status: Category l Diagnosis, Plan/Disposition Final Diagnosis (1) Intrauterine growth restriction (IUGR) affecting care of mother: Status: Acute (2) 35 weeks gestation of : Status: Acute Plan/Disposition Plan: Reactive nonstress test done for IUGR at 35 weeks. Patient has an appointment in office also later today. Continue twice weekly NSTs and weekly office visits. OB Disposition: home
== END 2022-12-20 14:50 | disposition home or self-care (01) ==
LOC: LABOR 14:29 → OB 01-12 09:00
PROVIDERS: PCP Family Medicine; Referring Provider Obstetrics & Gynecology; Visit Provider Obstetrics & Gynecology
DX: O36.5930 Maternal care for other known or suspected poor fetal growth, third trimester, not applicable or unspecified (principal); Z3A.35 35 weeks gestation of pregnancy
CPT/HCPCS: 59025; G0378; G0379

== ENCOUNTER 2022-12-24 09:18 | Outpatient (CLI) | payer OTHER, SELFPAY ==
--- NOTE | 2022-12-24 11:02 | PM.OBTRLD ---
Visit Information Visit Information Date of evaluation: 12/24/22 Primary OB Provider: Vanessa Mancini On-call OB Provider: Courtney Rivera Reason for Evaluation: Yes non-stress test non-stress test reason: other (IUGR) Vital Signs Vital Signs: Blood pressure 121/72, pulse 95, temperature 96.8? FORMERLY [facility] Medical History (Updated 12/24/22 @ 11:04 by Courtney Rivera MD) Abnormal Pap smear of cervix (~2019) HPV (human papilloma virus) infection (~2019) Intrauterine growth restriction (IUGR) affecting care of mother induced hypertension, Recurrent loss Surgical History (Updated 06/25/22 @ 19:56 by Vanessa Mancini MD) Anesthesia History of dilatation and curettage (~03/2019) S/P LEEP (~05/2020) [place] teeth extracted Family History (Updated 05/22/22 @ 12:47 by Florence Aiken RN) Father Diabetes mellitus Family/Other Cirrhosis with alcoholism Grandmother End stage liver disease Mother Kidney stones Uterine fibroid Grandmother Kidney stones Social History marital status: number of children: 1 household members: spouse and children lives independently: Yes caregiver/support person: Yes housing: house pets and animals: Yes (1 dog) education level: college (Associate's degree) occupational status: unemployed current occupational exposures/hazards: No lali/pentecostal: Adventism special lali needs: No travel history: recent (domestic only) seatbelt use: always water heater temp set < 120 deg: Yes working smoke detector in home: Yes fire extinguisher in home: Yes carbon monox detector in home: Yes firearms in home: Yes firearms unloaded and locked: Yes do you feel safe at home: Yes Smoking Status: Never smoker second hand exposure: No alcohol intake: former (1-2/week when not ) substance use type: does not use during the past year weight has: remained stable well-balanced diet: about half the time daily servings fruits/ve-4 caffeine: Yes (aware of 200mg limit) Type(s) of exercise: walking Evaluation Evaluation Baseline heart rate: 140 Variability: Moderate (11-25) monitor accelerations: Present Monitor Decelerations: Absent Contraction Frequency (minutes): 0 Category of Tracing: Reactive Status: Category l Diagnosis, Plan/Disposition Final Diagnosis (1) 36 weeks gestation of : Status: Acute (2) Intrauterine growth restriction (IUGR) affecting care of mother: Status: Acute Plan/Disposition Plan: Reactive nonstress test. Patient is to continue twice weekly NSTs and weekly OB visits. OB Disposition: home
== END 2022-12-24 09:47 | disposition home or self-care (01) ==
LOC: LABOR 09:27 → OB 01-01 06:30
PROVIDERS: PCP Family Medicine; Referring Provider Specialist; Visit Provider Specialist
DX: O36.5930 Maternal care for other known or suspected poor fetal growth, third trimester, not applicable or unspecified (principal); Z3A.36 36 weeks gestation of pregnancy
CPT/HCPCS: 59025; G0378; G0379

== ENCOUNTER 2022-12-30 09:16 | Outpatient (CLI) | payer OTHER, SELFPAY ==
--- NOTE | 2022-12-30 09:57 | P.TNLD_ITS ---
Visit Information Visit Information Date of evaluation: 12/30/22 Primary OB Provider: Pedro Gallagher On-call OB Provider: Sylvia Alexander Reason for Evaluation: Yes non-stress test Comments/Additional reasons for admission: Imelda is a in her 36th week with history of pre-eclampsia and affected by IUGR. She is here today for NST. Vital Signs Vital Signs: BP 105/61 HR: 82 SpO2: 99% Temp 36.2 C temporal [facility] Medical History (Updated 12/24/22 @ 11:04 by Courtney Rivera MD) Abnormal Pap smear of cervix (~2019) HPV (human papilloma virus) infection (~2019) Intrauterine growth restriction (IUGR) affecting care of mother induced hypertension, Recurrent loss Surgical History Anesthesia History of dilatation and curettage (~03/2019) S/P LEEP (~05/2020) [place] teeth extracted Family History Father Diabetes mellitus Family/Other Cirrhosis with alcoholism Grandmother End stage liver disease Mother Kidney stones Uterine fibroid Grandmother Kidney stones Social History marital status: number of children: 1 household members: spouse and children lives independently: Yes caregiver/support person: Yes housing: house pets and animals: Yes (1 dog) education level: college (Associate's degree) occupational status: unemployed current occupational exposures/hazards: No lali/hinduism: Confucianist special lali needs: No travel history: recent (domestic only) seatbelt use: always water heater temp set < 120 deg: Yes working smoke detector in home: Yes fire extinguisher in home: Yes carbon monox detector in home: Yes firearms in home: Yes firearms unloaded and locked: Yes do you feel safe at home: Yes Smoking Status: Never smoker second hand exposure: No alcohol intake: former (1-2/week when not ) substance use type: does not use during the past year weight has: remained stable well-balanced diet: about half the time daily servings fruits/ve-4 caffeine: Yes (aware of 200mg limit) Type(s) of exercise: walking Review of Systems Review of Systems Narrative: negative Evaluation Evaluation Baseline heart rate: 135 Variability: Moderate (11-25) monitor accelerations: Present Monitor Decelerations: Absent Contraction Frequency (minutes): 0 Category of Tracing: Reactive Diagnosis, Plan/Disposition Final Diagnosis (1) 36 weeks gestation of : Status: Acute (2) History of prior with IUGR : Status: Acute (3) H/O section complicating : Status: Acute (4) High risk in first trimester due to recurrent loss: Status: Acute (5) Encounter for supervision of other normal , first trimester: Status: Acute (6) induced hypertension, : Status: Acute Plan/Disposition Plan: NST today. D/c home.
== END 2022-12-30 10:00 | disposition home or self-care (01) ==
LOC: OB 01-04 15:07
PROVIDERS: PCP Family Medicine; Referring Provider Obstetrics & Gynecology; Visit Provider Obstetrics & Gynecology
DX: O36.5930 Maternal care for other known or suspected poor fetal growth, third trimester, not applicable or unspecified (principal); O34.219 Maternal care for unspecified type scar from previous cesarean delivery; O26.23 Pregnancy care for patient with recurrent pregnancy loss, third trimester; Z3A.36 36 weeks gestation of pregnancy
CPT/HCPCS: 59025; G0378; G0379

== ENCOUNTER 2023-01-02 14:53 | Outpatient (CLI) | payer OTHER, SELFPAY | END 2023-01-02 15:35 | disposition home or self-care (01) | LOC: LABOR 14:59 → OB 01-04 15:04 | PROVIDERS: PCP Family Medicine; Referring Provider Obstetrics & Gynecology; Visit Provider Obstetrics & Gynecology | DX: O36.5930 Maternal care for other known or suspected poor fetal growth, third trimester, not applicable or unspecified (principal); Z3A.37 37 weeks gestation of pregnancy; Z34.83 Encounter for supervision of other normal pregnancy, third trimester | CPT/HCPCS: 59025; 87653; G0378; G0379 ==

== ENCOUNTER → 2023-01-02 16:17 | Outpatient (CLI) | payer OTHER, SELFPAY ==
[2023-01-03 15:05] LABS: Strep Grp B PCR NEG for Grp B Strep
== END ==
PROVIDERS: PCP Family Medicine; Visit Provider Obstetrics & Gynecology
DX: Z34.83 Encounter for supervision of other normal pregnancy, third trimester (principal)
CPT/HCPCS: 87653

== ENCOUNTER 2023-01-06 11:56 | Outpatient (CLI) | payer OTHER, SELFPAY ==
--- NOTE | 2023-01-14 16:55 | P.TNLD_ITS ---
Visit Information Visit Information Date of evaluation: 01/06/23 Primary OB Provider: Vanessa Mancini On-call OB Provider: Vanessa Mancini Reason for Evaluation: Yes non-stress test and Yes other Comments/Additional reasons for admission: growth restriction [facility] Medical History (Updated 01/07/23 @ 21:37 by Vanessa Mancini MD) Abnormal Pap smear of cervix (~2019) HPV (human papilloma virus) infection (~2019) Intrauterine growth restriction (IUGR) affecting care of mother induced hypertension, Recurrent loss Surgical History Anesthesia History of dilatation and curettage (~03/2019) S/P LEEP (~05/2020) [place] teeth extracted Family History Father Diabetes mellitus Family/Other Cirrhosis with alcoholism Grandmother End stage liver disease Mother Kidney stones Uterine fibroid Grandmother Kidney stones Social History marital status: number of children: 1 household members: spouse and children lives independently: Yes caregiver/support person: Yes housing: house pets and animals: Yes (1 dog) education level: college (Associate's degree) occupational status: unemployed current occupational exposures/hazards: No lali/baptist: Hindu special lali needs: No travel history: recent (domestic only) seatbelt use: always water heater temp set < 120 deg: Yes working smoke detector in home: Yes fire extinguisher in home: Yes carbon monox detector in home: Yes firearms in home: Yes firearms unloaded and locked: Yes do you feel safe at home: Yes Smoking Status: Never smoker second hand exposure: No alcohol intake: former (1-2/week when not ) substance use type: does not use during the past year weight has: remained stable well-balanced diet: about half the time daily servings fruits/ve-4 caffeine: Yes (aware of 200mg limit) Type(s) of exercise: walking Evaluation Evaluation Baseline heart rate: 135 Variability: Moderate (11-25) monitor accelerations: Present Monitor Decelerations: Absent Category of Tracing: Reactive Diagnosis, Plan/Disposition Plan/Disposition Plan: 37+4 wks gestation FGR Reactive NST OB Disposition: home
== END 2023-01-06 13:03 | disposition home or self-care (01) ==
LOC: OB 01-08 10:39
PROVIDERS: PCP Family Medicine; Referring Provider Obstetrics & Gynecology; Visit Provider Obstetrics & Gynecology
DX: O36.5930 Maternal care for other known or suspected poor fetal growth, third trimester, not applicable or unspecified (principal); Z3A.38 38 weeks gestation of pregnancy
CPT/HCPCS: 59025; G0378; G0379

== ENCOUNTER 2023-01-09 12:06 | Outpatient (CLI) | payer OTHER, SELFPAY | END 2023-01-09 12:50 | disposition home or self-care (01) | LOC: LABOR 12:47 → OB 01-15 06:56 | PROVIDERS: PCP Family Medicine; Referring Provider Obstetrics & Gynecology; Visit Provider Obstetrics & Gynecology | DX: O36.5930 Maternal care for other known or suspected poor fetal growth, third trimester, not applicable or unspecified (principal); Z3A.38 38 weeks gestation of pregnancy | CPT/HCPCS: 59025; G0378; G0379 ==

== ENCOUNTER 2023-01-12 09:57 | Outpatient (CLI) | payer OTHER, SELFPAY | END 2023-01-12 10:58 | disposition home or self-care (01) | LOC: LABOR 10:03 → OB 01-15 06:58 | PROVIDERS: PCP Family Medicine; Referring Provider Obstetrics & Gynecology; Visit Provider Obstetrics & Gynecology | DX: O36.5930 Maternal care for other known or suspected poor fetal growth, third trimester, not applicable or unspecified (principal); Z3A.38 38 weeks gestation of pregnancy | CPT/HCPCS: 59025; G0378; G0379 ==

== ENCOUNTER 2023-01-15 05:41 | Inpatient (IN) | payer OTHER, SELFPAY ==
[2023-01-15 06:19] VITALS: BP 128/83
[2023-01-15 06:49] LABS: Add Manual Diff / Slide Review NO; Basophils Absolute Auto 0 /uL (0-100); Basophils Percent Auto 0.3 % (0-2); Eosinophils Absolute Auto 200 /uL (0-450); Hematocrit 37.2 % (36-46); Hemoglobin 12.6 g/dL (12.0-16.0); Lymphocytes Absolute Auto 2200 /uL (1100-4500); Lymphocytes Percent Auto 20.2 % (25-40); Mean Corpuscular Hemoglobin 30.8 PG (26-34); Mean Corpuscular Volume 90.8 fL (80-100); Monocytes Absolute Auto 800 /uL (0-900); Monocytes Percent Auto 7.1 % (3-14); Neutrophils Absolute Auto 7700 /uL (1500-7000); Neutrophils Percent Auto 70.4 % (50-75); Platelet Count 155 X10^3/uL (150-400); Red Cell Distribution Width 13.8 % (11.6-14.8); White Blood Cell Count 10.9 X10^3/uL (4.5-11.0)
[2023-01-15] MEDS: SCOPOLAMINE 1 PATCH TOP (07:34)
[2023-01-15] MEDS: CITRIC ACID/SODIUM CITRATE 15 ML SOLUTION 30 ML PO (07:34)
--- NOTE | 2023-01-15 07:53 | P.HPOB_ITS ---
OB HPI Date/Time Date of admission: 01/15/23 Date Patient Seen: 01/15/23 Time Patient Seen: 07:53 History of Present Condition Chief complaint: INPT ADAM Calculator Estimated Delivery Date Method Current WG Current Estimate 01/21/23 LMP (Certain) 39w 1d Other Estimates 01/23/23 Ultrasound #1 38w 6d 01/26/23 Ultrasound #2 38w 3d Estimated Gestational Age (weeks): 39+1 : 5 Para: 1 care: good care, initiated at week # (9), number of visits (11) and pounds weight gain (58) Dating criteria OB: LMP confirmed by 1st trimester US Ultrasounds: normal 1st trimester US and abnormal US findings (LLP, FGR) Obstetrical complications: growth restriction Medical complications OB: none Indications Operative indications ( section): previous uterine surgery Preadmission Labs Last OB Lab Results: Blood Type A Positive 01/15/23 06:30 Antibody Screen Negative 01/15/23 06:30 Hematocrit 37.2 % (36-46) 01/15/23 06:30 Hemoglobin 12.6 g/dL (12.0-16.0) 01/15/23 06:30 Hepatitis B Surface Antigen Negative s/c (NEGATIVE) 06/20/22 12 :27 Hepatitis C Antibody Negative s/c (NEGATIVE) 06/20/22 12:27 Rubella Antibody 48.9 IU/mL (>15) 06/20/22 12:27 Varicella-Zoster IgG Antibody 1553 index (Immune >165) 06/20/22 12:27 Glucose 1 Hour 84 mg/dL (76-139) 10/19/22 12:38 Group B Streptococcus (PCR) Neg for grp b strep 01/02/23 16:17 -: Chlamydia screen: negative, Gonorrhea screen: negative and Urine: negative -: PAP smear: Normal Genetic Screens: Cell-free DNA: Normal (normal female) and Alpha-fetoprotein: Normal External Labs -: Urine: negative Prior (ies) Past Pregnancies Del. Date GA/Weeks Labor Lgth Wt Sex Route Outcome Anesthesia Place Delv Breastfeed Preg Comp Name 11/02/18 4 spontaneous 12/04/18 4 spontaneous 03/04/19 12 spontaneous 03/22/20 34 2 lb 13 oz Male live - gage [place], [place] 3 months intrauterine growth restr [place] Delivery Date: 03/04/19 Last Updated by: Florence Aiken RN missed AB, required D&C Delivery Date: 03/22/20 Last Updated by: Florence Aiken RN Emergent C/S for severe IUGR Evaluation Evaluation Baseline heart rate: 135 Variability: Moderate (11-25) monitor accelerations: Present Monitor Decelerations: Absent Category of Tracing: Reactive [facility] Medical History (Updated 01/07/23 @ 21:37 by Vanessa Mancini MD) Abnormal Pap smear of cervix (~2019) HPV (human papilloma virus) infection (~2019) Intrauterine growth restriction (IUGR) affecting care of mother induced hypertension, Recurrent loss Surgical History Anesthesia History of dilatation and curettage (~03/2019) S/P LEEP (~05/2020) [place] teeth extracted Family History Father Diabetes mellitus Family/Other Cirrhosis with alcoholism Grandmother End stage liver disease Mother Kidney stones Uterine fibroid Grandmother Kidney stones Social History marital status: number of children: 1 household members: spouse and children lives independently: Yes caregiver/support person: Yes housing: house pets and animals: Yes (1 dog) education level: college (Associate's degree) occupational status: unemployed current occupational exposures/hazards: No lali/jehovah's witness: Catholic special lali needs: No travel history: recent (domestic only) seatbelt use: always water heater temp set < 120 deg: Yes working smoke detector in home: Yes fire extinguisher in home: Yes carbon monox detector in home: Yes firearms in home: Yes firearms unloaded and locked: Yes do you feel safe at home: Yes Smoking Status: Never smoker second hand exposure: No alcohol intake: former (1-2/week when not ) substance use type: does not use during the past year weight has: remained stable well-balanced diet: about half the time daily servings fruits/ve-4 caffeine: Yes (aware of 200mg limit) Type(s) of exercise: walking Meds Home Medications and Allergies Home Medications Medication Instructions Recorded Confirmed Type prenat.vits,paulina,yro-[id number] 1 tab PO DAILY 05/22/22 01/15/23 History Double Electric Breast Pump #1 ea 01/02/23 01/15/23 Rx Allergies Allergy/AdvReac Type Severity Reaction Status Date / Time No Known Drug Allergies Allergy Verified 01/15/23 06:16 OB Exam Narrative Exam Narrative: HEENT: No thyromegaly, no anterior cervical or supraclavicular lymphadenopathy. Lungs:Clear to auscultation bilaterally, no wheezes. Cardiovascular: Regular rate and rhythm, no murmurs, rubs, or gallops. Abdomen: Well-healed Pfannenstiel scar. No hepatosplenomegaly. No masses palpable. Fundal height: 40 cm Estimated weight: 7 lb Extremities: Trace edema Objective Labs 01/15/23 06:30 Labs: Laboratory Results - last 24 hr 01/15/23 01/15/23 06:30 06:30 WBC 10.9 RBC 4.10 Hgb 12.6 Hct 37.2 MCV 90.8 MCH 30.8 MCHC 34.0 RDW 13.8 Plt Count 155 Neut % (Auto) 70.4 Lymph % (Auto) 20.2 L [facility] % (Auto) 7.1 Eos % (Auto) 2.0 Baso % (Auto) 0.3 Neut # (Auto) 7700 H Lymph # (Auto) 2200 [facility] # (Auto) 800 Eos # (Auto) 200 Baso # (Auto) 0 Blood Type A Positive Antibody Screen Negative Assessment and Plan Assessment and Plan Assessment and Plan narrative: Assessment: 32-year-old 5 para 1 at 39-,1/7 weeks gestation with a previous section Plan: Repeat low-transverse section The risks, benefits, and alternatives to the procedure were explained to the patient. The risks including bleeding, infection, injury to the bowel, bladder, or ureters. She understands these risks and agrees to proceed. A full par Q was held and consent form was signed. Time Spent with Patient Total time spent with greater than 50% in coordination of care (as documented) at patient's floor/unit and/or counseling patient:: less than 15 minutes
--- NOTE | 2023-01-15 07:58 | PM.PREOP ---
Pre-operative Note COVID-19 Criteria for continued procedure: Non-surgical alternatives not available or appropriate per current SOC Interval Note History & Physical reviewed/Exam performed by Physician: Yes Changes to H&P: No H&P completed within 30 days and has changed as indicated here:: 01/15/23
[2023-01-15] MEDS: CEFAZOLIN 2 GM/100 ML PREMIX 100 ML IV (08:10)
[2023-01-15] MEDS: LACTATED RINGERS 1,000 ML 999 ML IV (08:20)
--- NOTE | 2023-01-15 08:24 | SUR.OPER ---
Supine on Padded OR bed, head on pillow, safety belt at thigh, arms secured on padded arm boards at <90 degrees abduction. Bump under right buttock. Legs uncrossed with pillow under knees, gel pad to heels, tape over blanket to lower legs.
--- NOTE | 2023-01-15 08:33 | SUR.OPER ---
Pre-op FHR= 155. Viable baby girl born at 0826. Placenta delivered at 0831. Placenta and cord blood given to OB RNs.
[2023-01-15 09:06] VITALS: BP 128/73; PULSE 98; RESP 18; TEMP 36.3; O2SAT 100
[2023-01-15 09:11] VITALS: BP 124/70; PULSE 98; RESP 16; O2SAT 100
[2023-01-15 09:16] VITALS: BP 119/72; PULSE 98; RESP 16; O2SAT 100
--- NOTE | 2023-01-15 09:35 | PM.OBCS.1 ---
Operative Date/Time/Diagnoses Date of procedure: 01/15/23 Time of procedure: 09:35 Pre-op diagnosis: 39+1 weeks gestation Previous C section Post-op diagnosis: same Procedure & Clinicians Procedure: Repeat low-transverse Same procedure as scheduled: Yes Indications: 39 weeks gestation Previous C section Surgeon: Vanessa Prescott Yes if Unassisted: No Beer Still Runner Compounder: Courtney Rivera Reason for Beer Still Runner Compounder: The assistant professor of english was necessary to retract upon entry into the abdomen and uterus. She assisted with fundal pressure on delivery of the infant. She assisted with closure of the uterus and abdomen with retraction, clipping of suture, and closure of the contralateral fascia. Anesthesia Type: Spinal (With Duramorph) Operative Notes Findings: Live female in the MADDI presentation. Normal uterus, tubes, and ovaries Closure Type: primary Specimen(s): cord blood and placenta Intraoperative meds administered: Duramorph, Ketorolac and Pitocin Applied: Catheter (To continuous drainage) Estimated Blood Loss (mL): 400 Procedure in detail: The patient was taken to the operating room where she was placed in the seated position. Spinal anesthesia with Duramorph was administered. The patient was then placed in the dorsal supine position with a leftward tilt. She was prepped and draped in the usual sterile fashion. A timeout was performed. After spinal analgesia was found to be adequate, a Pfannenstiel skin incision was made through the previous incision and carried through to the underlying layer fascia. The fascia was nicked in the midline, and the incision extended bilaterally with the Del Rosario scissors. The superior aspect of the fascial incision was grasped with a Gibran clamps, elevated, and the underlying rectus muscles dissected off sharply and bluntly. Attention was then turned to the inferior aspect of this incision which in a similar fashion was grasped with a [place] clamps, elevated, and the underlying rectus muscles dissected off sharply and bluntly. The rectus muscles were in the midline. The peritoneum was identified, grasped between 2 hemostats, and entered sharply with the Metzenbaum scissors. This incision was extended superiorly and inferiorly with good visualization of the bladder. The bladder blade was inserted. The vesicouterine peritoneum was identified, grasped with the pickup, and entered sharply with the Metzenbaum scissors. This incision was extended bilaterally, and the bladder flap was created digitally. The bladder blade was reinserted. The lower uterine segment was incised in a transverse fashion with the scalpel. Upon entering the amniotic sac there was moderate amount of light meconium-stained amniotic fluid. The 's head was delivered without difficulty. The nose and mouth were suctioned with bulb suction. The remainder of the body delivered without difficulty. The cord was double clamped and cut after one minute. The infant was handed off to waiting RN and RT. The placenta was delivered by expression. The uterus was cleared of all clots and debris. The uterine incision was repaired with #1 chromic in a running interlocking fashion, and a second layer the same suture was used for an imbricating layer. Hemostasis was achieved. The tubes and ovaries were examined and were found to be normal. The gutters were cleared of all clots and debris. The bladder flap was reapproximated using 2-0 Vicryl in a running fashion. The parietal peritoneum was closed using 2-0 Vicryl in a running fashion. The fascia was reapproximated using 0 Vicryl in a running fashion. The subcutaneous layer was copiously irrigated with warm normal saline. 5 simple interrupted sutures of 3-0 Vicryl were placed to reapproximate the subcutaneous layer. The skin was closed with 4-0 Monocryl in a subcuticular fashion. Steri-Strips were placed. An Aquacel dressing was placed. The uterus was expressed of a small amount of old blood. Sponge, lap, and instrument counts were correct x-2. The patient tolerated the procedure well, and was taken to PACU in stable condition. Complications: none [place] Baby 1: Infant Gender: Female Presentation: vertex Position: Left Occiput Anterior Placental Delivery Description: Expressed Cord Vessel Description: 3 Vessels and Clamped/Cut (after one minute) score (1 min): 9 score (5 min): 10 weight: 6 lb 1.1 oz Post-operative Condition: stable Disposition: PACU Aftercare: routine postop
[2023-01-15] MEDS: KETOROLAC 30 MG/ML VIAL IV ×2 (15:15→21:31)
[2023-01-15] MEDS: ACETAMINOPHEN 325 MG TABLET 650 MG PO (18:30)
[2023-01-16] MEDS: ACETAMINOPHEN 325 MG TABLET 650 MG PO ×3 (01:00→17:42)
[2023-01-16] MEDS: KETOROLAC 30 MG/ML VIAL IV (04:34)
[2023-01-16 07:02] LABS: Add Manual Diff / Slide Review NO; Basophils Absolute Auto 0 /uL (0-100); Basophils Percent Auto 0.3 % (0-2); Eosinophils Absolute Auto 200 /uL (0-450); Eosinophils Percent Auto 1.3 % (2-4); Hematocrit 30.6 % (36-46); Hemoglobin 10.4 g/dL (12.0-16.0); Lymphocytes Absolute Auto 2800 /uL (1100-4500); Lymphocytes Percent Auto 20.4 % (25-40); Mean Corpuscular HGB Conc 33.8 % (30-36); Mean Corpuscular Hemoglobin 30.3 PG (26-34); Mean Corpuscular Volume 89.6 fL (80-100); Monocytes Absolute Auto 800 /uL (0-900); Monocytes Percent Auto 6.1 % (3-14); Neutrophils Absolute Auto 10000 /uL (1500-7000); Neutrophils Percent Auto 71.9 % (50-75); Platelet Count 141 X10^3/uL (150-400); Red Blood Cell Count 3.42 X10^6/uL (4.0-5.2); Red Cell Distribution Width 13.7 % (11.6-14.8); White Blood Cell Count 13.9 X10^3/uL (4.5-11.0)
[2023-01-16] MEDS: DOCUSATE 100 MG CAPSULE PO (08:53)
[2023-01-16] MEDS: IBUPROFEN 600 MG TABLET PO (12:50)
[2023-01-16 13:56] VITALS: BP 101/58; PULSE 100; RESP 16; TEMP 36.6
--- NOTE | 2023-01-22 11:49 | P.DS_ITS ---
Discharge Providers Provider Date of admission: 01/15/23 05:41 Discharge Date: 01/16/23 Primary care physician: Hector Jeffery MD Consults: 01/15/23 09:49 Consult to Behavioral Health Case Manager Routine Comment: Discharge provider: Vanessa Mancini MD Summary Hospital Course Date Patient Seen: 01/16/23 Time Patient Seen: 13:00 Diagnoses: 39+ 1 week's gestation Previous section Repeat low-transverse section History of multiple losses Hospital Course: Patient is a 32-year-old 5 para 2 who underwent a repeat low-transverse section on January 15, 2023, without complication. Her postoperative course was unremarkable. She was discharged home in the afternoon of January 16, 2023. She was ambulating independently. was going well. She was tolerating a diet. No nausea or vomiting. She was able to empty her bladder without the catheter. Her pain was well controlled. Peripartum Data Infant Delivery Method: Section Laceration Description: None Episiotomy description: None Procedures: Spinal anesthesia Repeat low-transverse section complications: none 1: Gender: Female Disposition of : home Status at Discharge Cognitive/behavioral status at discharge: oriented Functional status at discharge: independent ambulation Overall status at discharge: patient is progressing back to baseline Time Spent with Patient Time attestation: Total time spent providing and/or coordinating discharge services: Time spent: Less than 30 minutes Objective Labs 01/16/23 06:34 Exam Vital Signs (past 8 hours): Oxygen Delivery Method Room Air Narrative Exam Narrative: Generally: Patient is sitting up in bed, holding infant, no acute distress Lungs: Clear to auscultation bilaterally Cardiovascular: Regular rate and rhythm Fundus: Firm at U -1 Incision: Clean dry and intact with Aquacel dressing Extremities: Trace edema, negative Homans Discharge Plan Discharge Plan Patient Disposition: Home Provider Discharge Comment: Fever, chills, redness or drainage around the incision, or bleeding vaginally more than a pad in an hour Ibuprofen 600 mg every 6 hours as needed Tylenol 650 mg every 6 hours as needed Stool softeners until bowels returned to normal Push oral fluid Discharge orders & Medications Prescriptions: New oxycodone 5 mg tablet 5 mg PO Q6H PRN (Reason: pain) Qty: 14 0RF Continued prenat.vits,paulina,[id number] Tablet 1 tab PO DAILY No Action (DME) Double Electric Breast Pump See Rx Instructions .Route .MEDSUPPLY Qty: 1 0RF Rx Instructions: Breast Pump and supplies Follow up/Referrals: Vanessa Mancini MD [Physician] - 1 Week (Follow up with Dr Mancini for incision check/Aquacel removal on 01/22/23 at 4pm and follow up on 02/27/23 at 1:45pm ) Diet/Activity/Treatments Diet: Regular Activity: No heavy lifting, nothing more than the baby Skin/Wound/Dressing Care Report to your healthcare provider any signs of infection, such as:: chills, fever, increased pain, unusual drainage and unusual redness Dressing: Do not remove Visit Report/Discharge Packet Instructions: DI for , DI for Prescription Opioid Use Stand Alone Forms: Patient Portal/API, Stroke Signs & Symptoms Discharge Data Primary Care Provider: Hector Jeffery Discharges patient from system. Discharge Date/Time: 01/16/23 17:50
== END 2023-01-16 17:50 | disposition home or self-care (01) | DRG 788 ==
PROVIDERS: Admitting Provider Obstetrics & Gynecology; PCP Family Medicine; Referring Provider Obstetrics & Gynecology; Visit Provider Obstetrics & Gynecology
PROC: 10D00Z1 Extraction of Products of Conception, Low, Open Approach (ICD-10-PCS; CPT 59514; principal; 2023-01-15 07:45)
DX: O34.211 Maternal care for low transverse scar from previous cesarean delivery (principal); Z3A.39 39 weeks gestation of pregnancy; Z37.0 Single live birth; O36.5930 Maternal care for other known or suspected poor fetal growth, third trimester, not applicable or unspecified
CPT/HCPCS: 36415; 59050; 59510; 59514; 85025; 86850; 86900; 86901; J0690; J1885; J2274; J2405